=== PATIENT | female | born 1950 | race Caucasian/White ===

== ENCOUNTER 2021-12-11 09:38 | Day surgery (SDC) | payer MEDICARE, OTHER ==
[~2021-12-11] VITALS: Ht 154.9 cm; Wt 69.8 kg
[2021-12-11] MEDS ORDERED: OXYC5 PO (09:58)
[2021-12-11] MEDS ORDERED: ACET325 PO (09:58)
[2021-12-11] MEDS ORDERED: ELIQUIS5 M2 PO (09:59)
[2021-12-11] MEDS ORDERED: AMLO10 PO (09:59)
[2021-12-11] MEDS ORDERED: B-12500 MC2 PO (10:00)
[2021-12-11] MEDS ORDERED: CALCIUM 600 MG1 EA19 PO (10:00)
[2021-12-11] MEDS ORDERED: DULO60 PO (10:01)
[2021-12-11] MEDS ORDERED: MAGNESIUM COMP300 MG (10:02)
[2021-12-11] MEDS ORDERED: TRELEGY ELLIPT1 EACH IH (10:02)
[2021-12-11] MEDS ORDERED: OMEP20ER PO (10:02)
[2021-12-11] MEDS ORDERED: ALBU8HFA2 (10:03)
[2021-12-11] MEDS ORDERED: METAMUCIL POWD798 GM (10:03)
[2021-12-11] MEDS ORDERED: Diovan320 MG (10:03)
[2021-12-11] MEDS ORDERED: PRAV20 PO (10:03)
--- NOTE | 2021-12-11 10:13 | NUR ---
12/11/21 1013 Madison Guardado AT 0958 P AT 1000
--- NOTE | 2021-12-11 13:06 | NUR ---
12/11/21 1306 Thien Mchugh PT D/C'D HOME, W/C TO CAR WITH DRIVING,PURSE, HOME O2 GIVEN TO PT, DENIES ANY C/O, DENIES PAIN, D/C INSTRUCTIONS GIVEN TO PT, PT VERBALIZED UNDERSTANDING OF D/C INSTRUCTIONS, PT IN NAD, PT USING HOME O2 AT 5LPM, 95%O2SAT.
== END 2021-12-11 12:50 | disposition home or self-care (01) ==
LOC: ORSCSDS 09:38
PROVIDERS: Student in an Organized Health Care Education/Training Program
PROC: 08RJ3JZ Replacement of Right Lens with Synthetic Substitute, Percutaneous Approach (ICD-10-PCS; principal; 2021-12-11 11:15)
DX: H25.13 Age-related nuclear cataract, bilateral (principal); I10 Essential (primary) hypertension; Z85.118 Personal history of other malignant neoplasm of bronchus and lung; Z79.01 Long term (current) use of anticoagulants; Z79.899 Other long term (current) drug therapy; Z99.81 Dependence on supplemental oxygen
CPT/HCPCS: J2001; J2250; J3010; J7040; V2632

== ENCOUNTER 2022-01-01 07:25 | Day surgery (SDC) | payer MEDICARE, OTHER ==
[~2022-01-01] VITALS: Ht 157.5 cm; Wt 70.4 kg
[~2022-01-01 07:25] MED LIST: ACET325 PO; ALBU8HFA2; AMLO10 PO; B-12500 MC2 PO; CALCIUM 600 MG1 EA19 PO; DULO60 PO; Diovan320 MG; ELIQUIS5 M2 PO; MAGNESIUM COMP300 MG; METAMUCIL POWD798 GM; OMEP20ER PO; OXYC5 PO; PRAV20 PO; TRELEGY ELLIPT1 EACH IH
== END 2022-01-01 09:51 | disposition home or self-care (01) ==
LOC: ORSCSDS 07:25
PROVIDERS: Student in an Organized Health Care Education/Training Program
PROC: 08DK3ZZ Extraction of Left Lens, Percutaneous Approach (ICD-10-PCS; principal; 2022-01-01 09:00)
DX: H25.12 Age-related nuclear cataract, left eye (principal); Z96.1 Presence of intraocular lens; I48.91 Unspecified atrial fibrillation; I10 Essential (primary) hypertension; Z99.81 Dependence on supplemental oxygen; Z85.118 Personal history of other malignant neoplasm of bronchus and lung; Z79.899 Other long term (current) drug therapy
CPT/HCPCS: J2001; J2250; J3010; J7040; V2632